=== PATIENT | male | born 1975 | race African-American/Black ===

== ENCOUNTER 2019-01-31 19:27 | Emergency (ER) | payer OTHER | END 2019-02-01 00:52 | disposition home or self-care (01) | LOC: JER 02-01 00:52 | DX: R07.9 Chest pain, unspecified (principal); Z95.0 Presence of cardiac pacemaker ==

== ENCOUNTER 2023-11-30 20:57 | Emergency (ER) | payer OTHER ==
[2023-11-30 21:06] VITALS: BP 125/79; PULSE 72; RESP 18; TEMP 99.3; BMI 26.6
[2023-11-30 22:35] LABS: BASO % 0.9 % (0-2.0); EOS % 1.8 % (0-4.5); HEMATOCRIT 41.6 % (35.4-49); HEMOGLOBIN 13.9 GM/dL (11.7-16.9); LYMPH % 38.5 % (8-40); MCH 27.2 pg (25.7-33.7); MCHC 33.4 g/dl (32.0-35.9); MEAN CELL VOLUME 81.2 fl (80-96); MONO % 6.9 % (3.8-10.2); NEUT % 51.9 % (42.8-82.8); PLATELET COUNT 255 10^3/uL (134-434); RBC 5.12 M/mm3 (4.00-5.60); WHITE BLOOD COUNT 6.6 K/mm3 (4.0-10.0)
[2023-11-30] MEDS: ACETAMINOPHEN 500 MG TABLET (FP) PO ONE (22:48)
[2023-11-30] MEDS ORDERED: ACETAMINOPHEN 500 MG TABLET (FP) ONE (22:49)
[2023-11-30 22:55] LABS: POTASSIUM 4.4 mmol/L (3.5-5.1)
[2023-11-30 22:57] LABS: CALCIUM 9.4 mg/dL (8.5-10.1)
[2023-11-30 22:58] LABS: ALBUMIN 4.2 g/dl (3.4-5.0); BLOOD UREA NITROGEN 12.9 mg/dL (7-18)
[2023-11-30 23:01] LABS: CREATININE 1.3 mg/dL (0.55-1.3)
[2023-11-30 23:02] LABS: BILIRUBIN,TOTAL 0.7 mg/dL (0.2-1)
[2023-12-01] MEDS ORDERED: KETOROLAC TROMETHAMINE 15 MG/ML VIAL ONE (00:10)
[2023-12-01] MEDS: KETOROLAC TROMETHAMINE 15 MG/ML VIAL IM ONE (00:12)
== END 2023-12-01 00:34 | disposition home or self-care (01) ==
LOC: JER 20:57
PROC: 3E0233Z Introduction of Anti-inflammatory into Muscle, Percutaneous Approach (ICD-10-PCS; principal; 2023-12-01)
DX: M79.644 Pain in right finger(s) (principal); M79.89 Other specified soft tissue disorders
CPT/HCPCS: 36415; 73130-TC-RT-FY; 80053; 85025; 85651; 99284-25

== ENCOUNTER 2023-12-22 15:32 | Emergency (ER) | payer OTHER ==
[2023-12-22 16:39] VITALS: BP 109/69; PULSE 58; RESP 18; TEMP 98.3; BMI 26.6
[2023-12-22] MEDS ORDERED: LIDOCAINE 5% TOPICAL PATCH ONE (18:07)
[2023-12-22] MEDS ORDERED: KETOROLAC TROMETHAMINE 30 MG/1 ML VIAL ONE (18:07)
[2023-12-22] MEDS: KETOROLAC TROMETHAMINE 30 MG/1 ML VIAL IM ONE (18:10)
[2023-12-22] MEDS: LIDOCAINE 5% TOPICAL PATCH TP ONE (18:19)
[2023-12-22] MEDS ORDERED: LIDOCAINE PATCH REMOVAL MC SCH (22:00)
== END 2023-12-22 18:37 | disposition home or self-care (01) ==
LOC: JER 15:32
PROC: 3E0233Z Introduction of Anti-inflammatory into Muscle, Percutaneous Approach (ICD-10-PCS; principal; 2023-12-22)
DX: M79.605 Pain in left leg (principal)
CPT/HCPCS: 99284-25

== ENCOUNTER 2024-03-24 22:10 | Emergency (ER) | payer OTHER ==
[2024-03-24 22:20] VITALS: BP 98/65; PULSE 78; RESP 20; TEMP 99.1; BMI 26.6
[2024-03-24] MEDS ORDERED: KETOROLAC TROMETHAMINE 30 MG/1 ML VIAL ONE (23:12)
[2024-03-24] MEDS: KETOROLAC TROMETHAMINE 30 MG/1 ML VIAL IM ONE (23:21)
[2024-03-24 23:23] LABS: BASO % 0.8 % (0-2.0); EOS % 0.5 % (0-4.5); HEMATOCRIT 42.4 % (35.4-49); HEMOGLOBIN 13.9 GM/dL (11.7-16.9); LYMPH % 20.7 % (8-40); MCH 26.6 pg (25.7-33.7); MCHC 32.7 g/dl (32.0-35.9); MEAN CELL VOLUME 81.3 fl (80-96); MEAN PLT VOLUME 7.8 fl (7.5-11.1); MONO % 4.2 % (3.8-10.2); NEUT % 73.8 % (42.8-82.8); PLATELET COUNT 250 10^3/uL (134-434); RBC 5.21 M/mm3 (4.00-5.60); RDW 14.2 % (11.9-15.9); WHITE BLOOD COUNT 9.3 K/mm3 (4.0-10.0)
[2024-03-24 23:44] LABS: ALBUMIN 4.2 g/dl (3.4-5.0); BLOOD UREA NITROGEN 14.3 mg/dL (7-18); CALCIUM 9.5 mg/dL (8.5-10.1)
[2024-03-24 23:46] LABS: URIC ACID 6.3 mg/dL (2.6-7.2)
[2024-03-24 23:47] LABS: CREATININE 1.5 mg/dL (0.55-1.3)
[2024-03-24 23:49] LABS: BILIRUBIN,TOTAL 0.8 mg/dL (0.2-1); TOT PROT 7.9 g/dl (6.4-8.2)
== END 2024-03-25 02:25 | disposition home or self-care (01) ==
LOC: JER 22:10
PROC: 3E0133Z Introduction of Anti-inflammatory into Subcutaneous Tissue, Percutaneous Approach (ICD-10-PCS; principal; 2024-03-24)
DX: M79.672 Pain in left foot (principal); M25.475 Effusion, left foot
CPT/HCPCS: 36415; 73610-TC-LT-FY; 73630-TC-LT; 80053; 84550; 85025; 99284-25